=== PATIENT | female | born 1995 | race African-American/Black ===

== ENCOUNTER 2020-04-01 13:22 | Emergency (ER) | payer OTHER, SELFPAY ==
[2020-04-01] VITALS (8 sets, daily range): BP systolic 129; BP diastolic 77; PULSE 84–95; RESP 16–26; TEMP 37.4; O2SAT 98
--- NOTE | ~2020-04-01 | XR_ITS ---
EXAMINATION: XR chest 1V portable DATE: 04/01/2020 14:04 INDICATION: Shortness of breath and cough TECHNIQUE: frontal view of the chest was obtained. COMPARISON: None FINDINGS: The lungs are clear with no focal airspace opacities, pulmonary edema, pleural effusion or pneumothor ax. The cardiomediastinal silhouette is normal. Visualized bones and soft tissues are unremarkable. IMPRESSION: 1. Normal chest radiograph. Reviewed, dictated and finalized at location A. IMPRESSION: 1. Normal chest radiograph.
--- NOTE | 2020-04-01 13:44 | ECG_ITS ---
Measurements Intervals [place] Rate: 96 P: 64 UT: 175 QRS: 46 QRSD: 87 T: 17 QT: 334 QTc: 422 Interpretive Statements SINUS RHYTHM POSSIBLE LEFT ATRIAL ENLARGEMENT BORDERLINE ST-T WAVE ABNORMALITY- INFERIOR LEADS BASELINE ARTIFACT- I, II, AVR, AVL, V4-6 BORDERLINE ECG Electronically Signed On 04-01-2020 16:49:27 CDT by Israel Kapadia D.O.
[2020-04-01 13:57] LABS: Basophils Percent Auto 0.6 % (0.2-1.2); Eosinophils Absolute Auto 0.4 K/mm3 (0-0.3); Eosinophils Percent Auto 8.1 % (0-4.4); Hematocrit 36.4 % (37.0-47.0); Hemoglobin 11.1 g/dL (12.0-15.0); Immature Granulocyte Absolute 0.01 K/mm3 (0.00-0.031); Immature Granulocyte Percent A 0.2 % (0-0.5); Immature Platelet Fraction Pct 2.3 % (0.9-11.2); Lymphocytes Absolute Auto 0.99 K/mm3 (0.9-3.2); Mean Corpuscular HGB Conc 30.5 g/dl (32-36); Mean Corpuscular Hemoglobin 20.6 pg (26-34); Mean Corpuscular Volume 67.7 fl (80-100); Monocytes Absolute Auto 0.5 K/mm3 (0.1-0.6); Monocytes Percent Auto 10.6 % (2.6-8.5); Neutrophils Absolute Auto 2.8 K/mm3 (1.3-6.7); Neutrophils Percent Auto 59.5 % (45.5-73.1); Platelet Count Result 303 k/mm3 (150-375); Red Blood Count 5.38 M/mm3 (4.2-5.4); Red Cell Distribution Width 20.8 % (11.5-14.5); White Blood Count 4.7 K/mm3 (4.5-10.0)
[2020-04-01 14:07] LABS: Blood Urea Nitrogen 8 mg/dL (7-17); Calcium 9.2 mg/dL (8.4-10.2); Carbon Dioxide 24 mmol/L (22-30); Chloride 104 mmol/L (98-107); Estimated CRCL calculation 99 ml/min; Estimated Glomerular Filt Rate > 60; Glucose 111 mg/dL (65-105); Sodium 136 mmol/L (137-145)
--- NOTE | 2020-04-01 14:43 | ED.SOB ---
HPI - SOB/Dyspnea General Chief Complaint: Shortness of Breath/Dyspnea Stated Complaint: fever, wheezing Time Seen by Provider: 04/01/20 14:19 History of Present Illness HPI Narrative: COugh, congestion and low grade fever for a few days. Started wheezing and having SOB this morning. She has a h/o asthma, although she has not required any treatment in years. 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 Related Data Allergies Allergy/AdvReac Type Severity Reaction Status Date / Time ibuprofen Allergy Hives Verified 04/01/20 13:42 Review of Systems Review of Systems: All systems reviewed & are unremarkable except as noted in HPI and below Constitutional: Constitutional: Reports fever(s) ENT: Denies sore throat Cardiovascular: Cardiovascular: Denies chest pain Respiratory: Respiratory: Reports cough, Reports dyspnea and Reports wheezing Gastrointestinal: Gastrointestinal: Reports diarrhea and Reports nausea Genitourinary: Genitourinary: Denies dysuria Neurologic: Denies numbness and Denies weakness COUNTS INCLUDE 234 BEDS AT THE [facility] Past Medical History Medical History Asthma Exam Const: General: healthy appearing, no acute distress and alert Orientation/consciousness: patient oriented x3 HENMT: Head: normal to inspection Neck: Neck: normal visual inspection and no lymphadenopathy Chest: Chest palpation & inspection: no tenderness Resp: Effort & Inspection: normal respiratory effort Auscultation: no rales, no rhonchi and wheezes Cardio: Jugular venous distension: no JVD Rate: regular rate Rhythm: regular rhythm Heart sounds: no murmurs GI: Inspection: non-distended GI Palp: Yes Soft to palpation and No Tenderness to palpation present (GI) Skin: General skin exam: normal color Neuro: General: patient oriented x3 and moves all extremities Speech: normal speech Extrem: General: no edema Psych: Appearance: well kempt Affect: normal affect Course Vital Signs Vital signs: Vital Signs Temperature 37.4 C 04/01/20 13:52 Pulse Rate 87 04/01/20 13:52 Respiratory Rate 16 04/01/20 13:52 Blood Pressure 129/77 04/01/20 13:52 Pulse Oximetry 98 04/01/20 13:52 Temperature 37.4 C 04/01/20 13:52 Pulse Rate 84 04/01/20 15:15 Respiratory Rate 25 H 04/01/20 15:15 Blood Pressure 129/77 04/01/20 13:52 Pulse Oximetry 98 04/01/20 13:52 MDM - SOB/Dyspnea MDM Narrative Medical decision making narrative: SHe has wheezing and mildly increased work of breathing. This is likely an exacerbation of her untreated asthma. Could have underlying infection. No fever here. Will test for COVID-19 and treatfor asthma exacerbation Medical Records Attestation: I reviewed the patient's medical records. Lab Data Attestation: I reviewed the patient's lab results. Result diagrams: 04/01/20 13:46 04/01/20 13:46 Labs: Lab Results 04/01/20 04/01/20 04/01/20 Range/Units 13:46 13:46 13:48 WBC 4.7 (4.5-10.0) K/mm3 RBC 5.38 (4.2-5.4) M/mm3 Hgb 11.1 L (12.0-15.0) g/dL Hct 36.4 L (37.0-47.0) % MCV 67.7 L (80-100) fl MCH 20.6 L (26-34) pg MCHC 30.5 L (32-36) g/dl RDW 20.8 H (11.5-14.5) % Plt Count 303 (150-375) k/mm3 MPV 11.0 H (7.4-10.4) fl Immature Gran % (Auto) 0.2 (0-0.5) % Neut % (Auto) 59.5 (45.5-73.1) % Lymph % (Auto) 21.0 (18.3-44.2) % [place] % (Auto) 10.6 H (2.6-8.5) % Eos % (Auto) 8.1 H (0-4.4) % Baso % (Auto) 0.6 (0.2-1.2) % Lymph # (Auto) 0.99 (0.9-3.2) K/mm3 [place] # (Auto) 0.5 (0.1-0.6) K/mm3 Eos # (Auto) 0.4 H (0-0.3) K/mm3 Baso # (Auto) 0.0 (0.0-0.1) K/mm3 Abs Immat Gran (auto) 0.01 (0.00-0.031) K/mm3 Absolute Neuts (auto) 2.8 (1.3-6.7) K/mm3 Absolute Nucleated RBC 0.0 (0.0-0.012) K/mm3 Nucleated RBC % 0.0 (0.0-0.2) % % Immature Plt Fraction 2.3 (0.9-1
[2020-04-01] MEDS: ALBUTEROL SULFATE (*SP) AEROSOL 1 PUFF 2 PUFF INHALATION (15:16)
[2020-04-01] MEDS: predniSONE 20 MG TABLET 60 MG PO (15:19)
[2020-04-03 20:02] LABS: SARS-CoV-2 RNA PCR Negative
== END 2020-04-01 15:20 | disposition home or self-care (01) ==
PROVIDERS: Emergency Medicine; Emergency Provider Emergency Medicine
DX: J45.901 Unspecified asthma with (acute) exacerbation (principal); Z20.828 Contact with and (suspected) exposure to other viral communicable diseases; R94.31 Abnormal electrocardiogram [ECG] [EKG]
CPT/HCPCS: 36415; 71045; 80048; 85025; 85055; 87635; 93005; 99283; A9270; C9803; J7512; U0003